=== PATIENT | male | born 1970 | race Caucasian/White ===

== ENCOUNTER 2020-10-23 11:47 | Outpatient (CLI) | payer OTHER, SELFPAY ==
[2020-10-23 12:09] LABS: SARS-CoV-2 Ag Negative (Negative)
== END 2020-10-23 11:48 | disposition home or self-care (01) ==
LOC: CHSLAB 11:52
PROVIDERS: PCP Internal Medicine; Visit Provider Internal Medicine
DX: Z20.828 Contact with and (suspected) exposure to other viral communicable diseases (principal)
CPT/HCPCS: 87426

== ENCOUNTER 2020-11-19 07:55 | Outpatient (CLI) | payer OTHER, SELFPAY ==
--- NOTE | ~2020-11-19 | US_ITS ---
US right upper quadrant INDICATION: Abnormal liver enzymes PROCEDURE: Realtime right upper abdominal ultrasound. COMPARISON: No prior studies for comparison. FINDINGS: The pancreas is normal without focal mass or pancreatic ductal dilation. Liver echotexture is normal without focal mass or intrahepatic biliary dilatation. There is normal directional flow i n the portal vein. The gallbladder is normal without stones, gallbladder wall thickening or pericholecystic fluid. Comm on bile duct measures 4 mm. No sonographic Ace's sign. IMPRESSION: 1: Normal limited abdominal ultrasound. Reviewed, dictated and finalized at location A. [facility]
[2020-11-19 09:09] LABS: Cholesterol 309 mg/dL (0-200); HDL Direct 24 mg/dL (40-60); Prostate Specific Antigen 1.4 ng/mL (< OR = 4.0)
[2020-11-19 09:13] LABS: LDL Cholesterol Calculated 164 mg/dL (<130); Triglycerides 605 mg/dL (0-150)
[2020-11-19 09:14] LABS: LDL Cholesterol Direct 177 mg/dL (0-130)
[2020-11-19 10:01] LABS: Creatinine Urine 141.67 mg/dL (40-278); MALB Creatinine Ratio 9.1 mg/g (0-30); Microalbumin Urine Random < 13.0 mg/L
[2020-11-23 11:26] LABS: Alanine Aminotransferase 88 U/L (16-63); Albumin Level 4.4 g/dL (3.4-5.0); Alkaline Phosphatase 108 U/L (46-116); Aspartate Amino Transferase 37 U/L (15-37); Bilirubin Direct 0.1 mg/dL (0-0.2); Bilirubin,Total 0.5 mg/dL (0.00-1.00); Glucose 271 mg/dL (70-99); Total Protein 7.8 g/dL (6.4-8.2)
== END 2020-11-19 07:56 | disposition home or self-care (01) ==
LOC: CHSIMG 07:57
PROVIDERS: PCP Internal Medicine; Visit Provider Internal Medicine
DX: R73.9 Hyperglycemia, unspecified (principal); R94.5 Abnormal results of liver function studies; Z12.5 Encounter for screening for malignant neoplasm of prostate; E78.1 Pure hyperglyceridemia
CPT/HCPCS: 36415; 76705; 80061; 80076; 82043; 82947; 83721; 84153; G0103

== ENCOUNTER 2024-05-24 09:42 | Emergency (ER) | payer OTHER, SELFPAY ==
--- NOTE | ~2024-05-24 | CT_ITS ---
CT abdomen pelvis w con Ordering provider: Mumtaz Watkins MD History: 54 years Male with . RLQ pain since 6 am . Comparison: January 15, 2007 Technique: CT abdomen and pelvis with IV and without oral contrast. Automated exposure control and it erative reconstruction technique were employed. The dose-length product was 571.24 mGy-cm. 100 mL of Omnipaque 350 was given IV. Findings: VISUALIZED LOWER CHEST: Normal. UPPER ABDOMINAL ORGANS: Liver: Fat infiltration. Gallbladder: Normal. Spleen: Normal. Stomach/duodenum: Normal. Pancreas: Normal. Adrenals: Right adrenal adenoma measuring 1.6 x 1.7 cm. Kidneys: Stone in the left kidney mid pole measuring 4 mm. small stones in the left kidney lower pole of the largest measures measuring 5 mm. Stone in the right kidney lower pole. right hydronephrotic changes seen with a stone in the right lower ureter measuring 5 mm. PELVIC ORGANS: The bladder is normal. BOWEL AND MESENTERY: Colon: Mild sigmoid diverticulosis without diverticulitis. Normal appendix. Small Bowel: Normal. No obstruction. Peritoneum/mesentery: No free air or free fluid. No mesenteric lymphadenopathy. RETROPERITONEUM: Mild atheromatous disease of the abdominal aorta. No retroperitoneal lymphadenopat hy. MUSCULOSKELETAL: Superficial soft tissues: The superficial soft tissues are normal. Bones: Age appropriate degenerative changes of the spine. IMPRESSION: 1. Stone in the right lower ureter with right hydronephrotic changes. 2. Bilateral kidney stones. 3. Mild fat infiltration of the liver. Reviewed, dictated and finalized at location A.
[2024-05-24 09:42] VITALS: BP 165/104; PULSE 80; RESP 18; TEMP 36.2; O2SAT 99
--- NOTE | 2024-05-24 10:13 | ED.ABDPAIN ---
HPI - Abdominal Pain General Chief Complaint: Abdominal Pain Stated Complaint: rlq pain Time Seen by Provider: 05/24/24 09:54 Source: patient and family Mode of arrival: ambulatory Limitations: no limitations History of Present Illness HPI narrative: 54-year-old white male with a history diabetes, hypertension, presents with right lower quadrant discomfort being evening at about 6:00 a.m.. He reports it is constant, has build up in intensity, does not have a colicky component. Denies any recent fever, chills, sinus drainage, sore throat, coughing, chest pain, shortness of breath, palpitations, near-syncope or syncope. Denies nausea or vomiting, diarrhea or constipation, dysuria urgency or frequency. The discomfort was worse as he was going down the steps. It also increases when he moves around. Related Data Home Medications Medication Instructions Recorded Confirmed alprazolam 2 mg tablet 2 mg PO DAILY 09/11/20 05/24/24 metformin 500 mg tablet 500 mg PO BID 05/24/24 05/24/24 rosuvastatin 5 mg tablet 5 mg PO DAILY 05/24/24 05/24/24 Allergies Allergy/AdvReac Type Severity Reaction Status Date / Time buspirone AdvReac Unknown Nausea Verified 05/24/24 09:42 mirtazapine AdvReac Unknown Depression Verified 05/24/24 09:42 morphine AdvReac Unknown unknown Verified 05/24/24 09:42 trazodone AdvReac Unknown Unknown Verified 05/24/24 09:42 Review of Systems Review of Systems: All systems reviewed & are unremarkable except as noted in HPI and below PMFSH Past Medical History Medical History Chronic insomnia History of dysthymia Surgical History Surgical History (System 02/14/21 @ 10:53 by Natalie Segovia) H/O hernia repair H/O shoulder surgery Family History Family History Father Hypertension Osteoarthritis Anxiety Social History Social History (System 02/14/21 @ 10:53 by Natalie Segovia) Smoking status: Never smoker Exam Narrative: pleasant, well-appearing child, appropriately interactive, no acute distress Const: General: cooperative, healthy appearing, comfortable, no acute distress, well developed, alert, awake and Physically active Orientation/consciousness: patient oriented x3 Other: Pleasant, well-oriented, articulate, no acute distress, mildly obese HENMT: Head: normal to inspection, normocephalic and atraumatic Ears: hearing grossly normal bilaterally and external ears normal Face/Nose/Sinus: Normal external nose present, Normal nares present, Normal nasal mucous membranes and turbinates present and normal facial exam Face and sinus: normal facial exam Mouth: Yes Normal oral and palatal mucosa present, Yes lip normal, Yes tongue normal, Yes oropharynx normal and Yes moist mucous membranes Teeth and gingiva: dentition normal Throat: posterior oropharynx normal and tonsils normal ( erythematous) Eyes: General: appearance normal, both eyes and all related structures Alignment and Position: alignment normal and position normal Periorbital: periorbital findings normal Eyelids: eyelids normal Conjunctivae: conjunctivae normal Sclera: sclerae normal Cornea: corneas normal Pupils: Equal, round and reactive pupils present EOM: EOMs intact bilaterally Neck: Neck: normal visual inspection, full ROM and no lymphadenopathy Chest: Chest palpation & inspection: normal inspection of the chest Resp: Effort & Inspection: normal respiratory effort, able to speak in complete sentences, no audible wheezes, no respiratory distress and no use of accessory muscles Auscultation: clear to auscultation bilaterally Cardio: Jugular venous distension: no JVD Rate: regular rate Rhythm: regular rhythm GI: Inspection: normal to inspection GI Palp: Yes Soft to palpation, Yes Tenderness to palpation present (GI), No Guarding due to palpation present (GI), No Rigid due to palpation,
[2024-05-24] MEDS: KETOROLAC 30 MG/ML VIAL (*BKC) IV PUSH (10:24)
[2024-05-24] MEDS: LACTATED RINGERS 1,000 ML 999 ML IV CONT (10:25)
[2024-05-24 10:27] VITALS: BP 184/97; PULSE 77; RESP 18; O2SAT 99
[2024-05-24 10:27] LABS: Basophils Absolute Auto 0.06 K/mm3 (0.00-0.10); Basophils Percent Auto 0.8 % (0.0-1.0); Eosinophils Absolute Auto 0.15 K/mm3 (0.02-0.50); Eosinophils Percent Auto 1.9 % (1.0-6.0); Hematocrit 44.9 % (40.0-54.0); Hemoglobin 15.8 g/dL (14.0-18.0); Immature Granulocyte Absolute 0.07 K/mm3 (0.00-0.00); Immature Granulocyte Percent A 0.9 % (0.0-0.0); Lymphocytes Percent Auto 20.4 % (18.0-42.0); Mean Corpuscular HGB Conc 35.2 g/dL (32-36); Mean Corpuscular Hemoglobin 30.7 pg (27.0-31.0); Mean Corpuscular Volume 87.2 fL (78.0-102.0); Mean Platelet Volume 8.9 fl (8.7-11.0); Monocytes Absolute Auto 0.46 K/mm3 (0.10-0.90); Monocytes Percent Auto 5.9 % (2.0-11.0); Neutrophils Absolute Auto 5.51 K/mm3 (1.70-7.20); Neutrophils Percent Auto 70.1 % (50.0-70.0); Platelet Count Result 177 K/mm3 (150-420); Red Blood Count 5.15 M/mm3 (4.70-6.10); Red Cell Distribution Width 11.9 % (11.6-14.4); White Blood Count 7.9 K/mm3 (4.8-10.8)
[2024-05-24 10:45] LABS: Alanine Aminotransferase 37 U/L (16-63); Albumin Level 3.8 g/dL (3.4-5.0); Alkaline Phosphatase 61 U/L (46-116); Anion Gap 8 mmol/L (4-12); Aspartate Amino Transferase 37 U/L (15-37); Blood Urea Nitrogen 11 mg/dL (7-18); Calcium 8.7 mg/dL (8.5-10.1); Carbon Dioxide 29 mmol/L (21-32); Chloride 102 mmol/L (98-108); Estimated CRCL calculation 65 ml/min; Estimated Glomerular Filt Rate > 60; Glucose 167 mg/dL (70-99); Lipase 27 U/L (16-77); Osmolality Calculated 291 mOsm/kg (285-295); Potassium 4.2 mmol/L (3.5-5.1); Sodium 139 mmol/L (136-145)
[2024-05-24 10:48] LABS: Appearance Urine Clear (Clear); Bilirubin Urine Negative (Negative); Blood Urine 3+ (Negative); Color Urine Yellow (Yellow); Glucose Urine UA 3+ (Negative); Ketones Urine Negative (Negative); Leukocyte Esterase Ur Negative LEU/UL (Negative); Nitrate Urine Negative (Negative); Protein Urine Negative (Negative); Specific Grav Ur 1.015 (1.010-1.020); Urobilinogen Urine 0.2 mg/dL (0.2-1.0)
[2024-05-24 10:55] LABS: Add Urine Microscopic? YES; RBC Urine >75 /hpf (0-2); Squamous Epithelial Cell Urine Noted /hpf (Few); WBC Urine None seen /hpf (0-3)
[2024-05-24 10:56] LABS: Bacteria Urine None seen /hpf
--- NOTE | 2024-05-24 11:08 | PC.NURSE ---
pt reports he is pain free at this time, denies any needs or complaints, is on his way to ct at this time. will continue to monitor.
--- NOTE | 2024-05-24 11:34 | PC.NURSE ---
pt has returned from ct and is awaiting results. nad noted. will continue to monitor.
[2024-05-24 12:45] VITALS: BP 143/99; PULSE 92; RESP 16; O2SAT 98
--- NOTE | 2024-05-24 12:49 | PC.NURSE ---
URINAL, STRAINER, AND SPECIMEN CUP PROVIDED TO PT AT [place].
== END 2024-05-24 12:45 | disposition home or self-care (01) ==
PROVIDERS: Emergency Provider Emergency Medicine; PCP Internal Medicine
DX: N13.2 Hydronephrosis with renal and ureteral calculous obstruction (principal); E11.9 Type 2 diabetes mellitus without complications; I10 Essential (primary) hypertension; Z79.84 Long term (current) use of oral hypoglycemic drugs; Z79.899 Other long term (current) drug therapy
CPT/HCPCS: 36415; 74177; 80053; 81001; 83690; 85025; 96361; 96374; 99284; J1885; J7120; Q9967

== ENCOUNTER 2024-06-20 17:16 | Emergency (ER) | payer OTHER, SELFPAY ==
[2024-06-20 17:18] VITALS: BP 143/97; PULSE 94; RESP 20; TEMP 36.3; O2SAT 98
--- NOTE | 2024-06-20 17:25 | ED.WOUNDLAC ---
HPI - Wound/Laceration General Chief Complaint: Wound/Laceration Stated Complaint: LACERATION Time Seen by Provider: 06/20/24 17:25 Source: patient Mode of arrival: ambulatory Limitations: no limitations History of Present Illness HPI narrative: ACCIDENTAL RAZOR BLADE INJURY TO LATERAL SIDE OF THE RIGHT LOWER LEG PRIOR TO ARRIVAL TO THE EMERGENCY ROOM. PATIENT DENIES OTHER INJURIES. UNKNOWN LAST TIME OF TETANUS SHOT. Related Data Home Medications Medication Instructions Recorded Confirmed alprazolam 2 mg tablet 2 mg PO DAILY 09/11/20 06/20/24 metformin 500 mg tablet 500 mg PO BID 05/24/24 06/20/24 rosuvastatin 5 mg tablet 5 mg PO DAILY 05/24/24 06/20/24 bupropion HCl 150 mg tablet,12 hr 150 mg PO BID 06/20/24 06/20/24 sustained-release citalopram 40 mg tablet 40 mg PO BID 06/20/24 06/20/24 hydroxyzine HCl 10 mg tablet 10 mg PO TID 06/20/24 06/20/24 Allergies Allergy/AdvReac Type Severity Reaction Status Date / Time buspirone AdvReac Unknown Nausea Verified 06/20/24 17:23 mirtazapine AdvReac Unknown Depression Verified 06/20/24 17:23 morphine AdvReac Unknown unknown Verified 06/20/24 17:23 trazodone AdvReac Unknown Unknown Verified 06/20/24 17:23 Review of Systems Review of Systems: All systems reviewed & are unremarkable except as noted in HPI and below PMFSH Past Medical History Medical History Chronic insomnia History of dysthymia Surgical History Surgical History H/O hernia repair H/O shoulder surgery Family History Family History Father Hypertension Osteoarthritis Anxiety Social History Social History Smoking status: Never smoker Exam Narrative: GENERAL APPEARANCE: WELL-DEVELOPED, WELL-NOURISHED SKIN: NORMAL COLOR HEAD: NORMOCEPHALIC, NONTRAUMATIC VASCULAR: NORMAL PERIPHERAL PULSES, NORMAL CAPILLARY REFILL. MUSCULOSKELETAL: 3 CM LACERATION AT THE LATERAL SIDE OF THE RIGHT LOWER LEG DISTAL TO THE KNEE, SUBCUTANEOUS. 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, NO GROSS MOTOR DEFICIT Procedures Laceration Laceration 1: Date: 06/20/24 Time: 18:05 Site: lower extremity Side (If applicable): right Size (cm): 3 Description: linear and clean Depth: simple, single layer Local Anesthetic: lidocaine 1% and with epi Amount of anesthesia used (mL): 5 Pre-repair: wound explored and irrigated ====== Skin Level ====== Skin layer closed with: nylon Size (cm): 5-0 Number of sutures: 7 Technique: simple, interrupted ====== Subcutaneous Layer ====== ====== Muscle Layer ====== ====== Tendon Layer ====== Discharge Plan Discharge Clinical Impression: Laceration of leg Patient Disposition: Home, Self-Care Condition: Stable Instructions: Antibiotic Form, Laceration (ED) Additional Instructions: RETURN IF SYMPTOMS ARE WORSENING , CALL YOUR FAMILY PHYSICIAN FOR APPOINTMENT, TAKE TYLENOL NEEDED FOR ACHES AND PAIN, CONTINUE HOME MEDICATIONS. REMOVE SUTURES IN 8 DAYS Prescriptions: New cephalexin 500 mg capsule 500 mg PO Q6H 7 Days Qty: 28 0RF No Action metformin 500 mg tablet 500 mg PO BID rosuvastatin 5 mg tablet 5 mg PO DAILY naproxen [Naprosyn] 500 mg tablet 500 mg PO BID PRN (Reason: pain) Qty: 30 0RF tamsulosin [Flomax] 0.4 mg capsule 0.4 mg PO DAILY Qty: 10 0RF ondansetron 4 mg tablet,disintegrating 4 mg PO Q6
[2024-06-20] MEDS: LIDOCAINE HCL 1% LOCAL INJ 10 ML VIAL 5 ML INFILTRATE (17:47)
[2024-06-20] MEDS: TETANUS,DIPHTHERIA,AC PERTUSSIS ADULT 0.5 ML (ADACEL) IM (17:47)
[2024-06-20 18:24] VITALS: BP 138/88; PULSE 88; RESP 18; O2SAT 98
--- NOTE | 2024-06-20 18:31 | PC.NURSE ---
WOUND REPAIRED AND CLEANED PER ERP. PT RECEIVED 7 SUTURES, TOLERATED WELL. WOUND DRESSED PER RN, PT TOLERATED WELL.
== END 2024-06-20 18:24 | disposition home or self-care (01) ==
PROVIDERS: Emergency Provider Emergency Medicine; PCP Internal Medicine
DX: S81.811A Laceration without foreign body, right lower leg, initial encounter (principal); Z79.899 Other long term (current) drug therapy; Z79.84 Long term (current) use of oral hypoglycemic drugs; Z23 Encounter for immunization; W27.8XXA Contact with other nonpowered hand tool, initial encounter
CPT/HCPCS: 12002; 90471; 90715; 99283

== ENCOUNTER 2025-09-11 20:59 | Emergency (ER) | payer OTHER, SELFPAY ==
[2025-09-11] VITALS (11 sets, daily range): BP systolic 137–158; BP diastolic 88–98; PULSE 85–94; RESP 11–20; TEMP 36.6; O2SAT 96–99
--- NOTE | ~2025-09-11 | CT_ITS ---
CT HEAD NON-CONTRAST Clinical History: vision changes Comparison: 10/20/2016 Technique: Unenhanced axial images skull base to vertex Coronal, sagittal reformats CT images acquired with automatic exposure control for dose reduction DLP: 681 mGy-cm Findings: Sulci, ventricles: Unremarkable. No intracerebral hemorrhage. No evidence acute territorial infarct. No mass effect, midline shift. Bony calvarium intact. Visualized paranasal sinuses: Clear. Mastoid air cells: Clear. IMPRESSION: 1. No acute intracranial findings. Reviewed, dictated and finalized at location R.
--- NOTE | 2025-09-11 21:07 | ED.EYEPROB ---
HPI - Eye Problem General Chief complaint: Neuro Symptoms/Deficit Stated complaint: eye prob Time Seen by Provider: 09/11/25 21:06 Source: patient Mode of arrival: ambulatory Limitations: no limitations History of Present Illness HPI Narrative: Patient is a 55-year-old male otherwise healthy having right greater than left eye floaters that have increased over the past 2 days. He has associated flashes of light that are also occurring more so in the right eye. chief complaint: vision change (Increased eye floaters and flashes of light more so in the right eye) Onset (ago): day(s) (2) Onset description: gradual Duration: intermittent Location: right eye Eye Symptoms: other (Right eye a increased floaters and flashes of light over the past 2 days) Place: home Mechanism: none Severity: mild Severity scale (1-10): 3 If Pain, Quality: other (No pain) Context: other (Patient having increased floaters and flashes of light to the right eye and 2 different occurrences 1 last night and 1 tonight that lasts for a period of time and then resolves and comes back) Associated symptoms: none Treatments Prior to Arrival: other (None) Related Data Home Medications ?Medication ?Instructions ?Recorded ?Confirmed ?Last Taken ?Type alprazolam 2 mg tablet 2 mg PO DAILY 09/11/20 09/11/25 Unknown History metformin 500 mg tablet 500 mg PO BID 05/24/24 09/11/25 Unknown History rosuvastatin 5 mg tablet 5 mg PO DAILY 05/24/24 09/11/25 Unknown History empagliflozin 25 mg tablet 25 mg PO DAILY 09/11/25 09/11/25 09/11/25 History (Jardiance) Allergies Allergy/AdvReac Type Severity Reaction Status Date / Time buspirone AdvReac Unknown Nausea Verified 09/11/25 21:45 mirtazapine AdvReac Unknown Depression Verified 09/11/25 21:45 morphine AdvReac Unknown unknown Verified 09/11/25 21:45 trazodone AdvReac Unknown Unknown Verified 09/11/25 21:45 Review of Systems Review of Systems: All systems reviewed & are unremarkable except as noted in HPI and below Constitutional: Constitutional: Reports no additional constitutional complaints Eyes: Eyes: Reports no additional eye complaints ENT: Reports system reviewed and no additional complaints, except as documented Cardiovascular: Cardiovascular: Reports no additional cardiovascular complaints Respiratory: Respiratory: Reports no additional respiratory complaints Gastrointestinal: Gastrointestinal: Reports no additional gastrointestinal complaints Genitourinary: Genitourinary: Reports no additional male genitourinary complaints Musculoskeletal: Musculoskeletal: Reports no additional musculoskeletal complaints Integumentary/Breasts: Skin/Breast: Reports system reviewed and no additional complaints, except as docu Neurologic: Reports system reviewed and no additional complaints, except as documented Psychiatric: Psychiatric: Reports no additional psychiatric complaints Endocrine: Endocrine: Reports no additional endocrine complaints Hematologic/Lymphatic: Hematologic/Lymphatic: Reports no additional hematologic/lymphatic complaints Allergic/Immunologic: Allergic/Immunologic: Reports no additional allergic/immunologic complaints [facility] Past Medical History Medical History History of dysthymia Chronic insomnia Surgical History Surgical History H/O shoulder surgery H/O hernia repair Family History Family History Father Hypertension Osteoarthritis Anxiety Social History Social History Smoking status: Never smoker Exam Const: General: healthy appearing Nutritional Appearance: well nourished Orientation/consciousness: patient oriented x3 HENMT: Head: normal to inspection Ears: external ears normal Face/Nose/Sinus: Normal external nose present Eyes: Conjunctivae: conjunctivae normal Pupils: Equal, round and reactive pupils present EOM: EOMs intact bilaterally Neck: Neck: normal visual inspection Chest: Chest palpation & inspection: normal inspection of the chest Resp: Effort & Inspection: normal respiratory effort and not labored Auscultation: clear to auscultation bilaterally and no crackles Cardio: Rate: regular rate Rhythm: regular rhythm Heart sounds: no murmurs GI: Inspection: non-distended GI Palp: Yes Soft to palpation and No Tenderness to palpation present (GI) Auscultation: normal bowel sounds : General: Yes bladder normal to palpation Back/Spine/Pelvis: Back: no CVA tenderness Skin: General skin exam: normal color Rashes: no rashes Wounds: no wounds Neuro: General: patient oriented x3, moves all extremities, no meningeal signs, no focal motor deficits and CN's II-XI intact bilaterally Other: Fast exam negative, NIH is 0, GCS is 15 Extrem: General: normal to inspection, no clubbing, cyanosis or edema and no pedal edema Psych: Mental Status: mental status grossly normal Affect: normal affect Attitude: cooperative Course Vital Signs Vital signs: Vital Signs Temperature 36.6 C 09/11/25 21:02 Pulse Rate 86 09/11/25 21:02 Respiratory Rate 20 09/11/25 21:02 Blood Pressure 151/93 H 09/11/25 21:02 Pulse Oximetry 99 09/11/25 21:02 Oxygen Delivery Room Air 09/11/25 21:02 Temperature 36.4 C 09/12/25 00:01 Pulse Rate 84 09/12/25 00:01 Respiratory Rate 17 09/12/25 00:01 Blood Pressure 137/93 H 09/12/25 00:01 Pulse Oximetry 96 09/12/25 00:01 Oxygen Delivery Room Air 09/12/25 00:01 MDM - Eye Problem MDM Narrative Medical decision making narrative: Patient is a 55-year-old male with increased floaters and flashes of light in his right eye over the past 2 days. We will do neurological workup at this time. We will touch base with Ophthalmology. Lab Data Attestation: I reviewed the patient's lab results. 09/11/25 21:41 09/11/25 21:41 Labs: Lab Results 09/11/25 09/11/25 Range/Units 21:05 21:41 WBC 8.4 (4.8-10.8) K/mm3 RBC 5.02 (4.70-6.10) M/mm3 Hgb 14.9 (14.0-18.0) g/dL Hct 43.8 (40.0-54.0) % MCV 87.3 (78.0-102.0) fL MCH 29.7 (27.0-31.0) pg MCHC 34.0 (32-36) g/dL RDW 11.9 (11.6-14.4) % Plt Count 222 (150-420) K/mm3 MPV 8.8 (8.7-11.0) fl Immature Gran % (Auto) 0.4 H (0.0-0.0) % Neut % (Auto) 69.0 (50.0-70.0) % Lymph % (Auto) 18.3 (18.0-42.0) % Eagle % (Auto) 6.2 (2.0-11.0) % Eos % (Auto) 5.4 (1.0-6.0) % Baso % (Auto) 0.7 (0.0-1.0) % Lymph # (Auto) 1.53 (1.10-4.50) K/mm3 Eagle # (Auto) 0.52 (0.10-0.90) K/mm3 Eos # (Auto) 0.45 (0.02-0.50) K/mm3 Baso # (Auto) 0.06 (0.00-0.10) K/mm3 Abs Immat Gran (auto) 0.03 H (0.00-0.00) K/mm3 Absolute Neuts (auto) 5.79 (1.70-7.20) K/mm3 Absolute Nucleated RBC 0.00 (0.00-0.00) K/mm3 Nucleated RBC % 0.0 (0-0.0) % PT 10.4 (9.50-12.1) Seconds INR 0.9 APTT 29.7 (23.9-30.70) Sec Sodium 144 (137-145) mmol/L Potassium 4.5 (3.4-5.0) mmol/L Chloride 102 (98-107) mmol/L Carbon Dioxide 30 (22-30) mmol/L Anion Gap 12 (4-12) mmol/L BUN 17 (9-20) mg/dL Creatinine 1.36 H (0.7-1.3) mg/dL Estim Creat Clear Calc 54 ml/min Estimated GFR 54 L (59 - ) Glucose 135 H (65-110) mg/dL POC Capillary Glucose 130 H (65-105) mg/dl Calculated Osmolality 301 H (285-295) mOsm/kg Calcium 9.8 (8.4-10.2) mg/dL Total Bilirubin 0.9 (0.2-1.3) mg/dL AST 36 (17-59) U/L ALT 33 (6-50) U/L Alkaline Phosphatase 76 (38-126) U/L Troponin I < 0.012 (0.000-0.034) ng/mL Total Protein 8.6 H (6.3-8.2) g/dL Albumin 4.8 (3.5-5.1) g/dL Imaging Data Attestation: I personally reviewed and interpreted this imaging study as follows: Radiologist's impression: CT scan of the head was negative for acute process ECG Data EKG #1: Attestation: I personally reviewed and interpreted this ECG as follows: ECG completion date: 09/11/25 ECG completion time: 21:42 EKG Interpretation: normal rate, sinus rhythm, no ectopy, non-specific ST changes, normal QRS, normal QT and left axis Discharge Plan Discharge Clinical Impression: Vitreous floaters of both eyes, Vitreous flashes of both eyes Patient Disposition: Home Condition: Stable Instructions: Eye (Visual) Floaters (ED) Additional Instructions: Please follow-up with field supervisor tomorrow at 9:30 a.m.. The address is [address] [place] [address]. Telephone #[phone]. Dr. Blevins is the field supervisor. If you can not make this appointment, please call them and reschedule. I suggest you get seen this week. Come back to the ER for worse symptoms. Patient Language: Montenegrin Prescriptions: No Action metformin 500 mg tablet 500 mg PO BID rosuvastatin 5 mg tablet 5 mg PO DAILY Jardiance 25 mg tablet 25 mg PO DAILY alprazolam 2 mg tablet 2 mg PO DAILY Follow-up/Referrals: Amol Ewing MD [Primary Care Provider, Internal Medicine] Time of Disposition: 00:36
--- NOTE | 2025-09-11 21:31 | ECG_ITS ---
Test Date: 2025-09-11 21:51:21 Measurements Intervals [place] Rate: 87 P: 54 VA: 174 QRS: -24 QRSD: 106 T: 33 QT: 366 QTc: 441 Interpretive Statements SINUS RHYTHM NORMAL ECG No previous ECG available for comparison Electronically Signed On 09-12-2025 06:16:11 CDT by Dimitri Noel D.O.
--- OUTSIDE RECORDS SUMMARY | 2025-09-11 21:35 | XMS_ITS | Continuity of Care Document ---
Author Organization [employer] Address [address] [facility] [address] [place] [address] Insurance Providers Payer Plan Claims Address Claims Phone Policy Number Group Number Relation Employer Guarantor Name Guarantor Guarantor Address Guarantor Phone [facility] Veronica nguyen [facility] [employer] [address], [place] [address] tel:[phone] Self Ashu Arndt [address] [place] [address] [facility] Veronica Hyde [employer] N[employer] [address], [place] [address] tel:[phone] Self Ashu Arndt [address] [place] [address] [facility] [employer] P[employer] [address], [place] [address] tel:[phone] Self Ashu Arndt [address] [place] [address] Problems Condition ICD9 code ICD10 code SNOMED code Start Date End Date S tatus Encounter for screening for other metabolic disorders Z13.228 Results Test Result Date/Time Value / Unit Interp. Refere nce Range COPY(IES) SENT TO:[$CPTO] Collected: 01/29/2023 04:12 PM Specimen Received: 01/29/2023 04:14 PM Source: [facility]: YES COPY(IES) SENT TO: [$CPTO] 01/30/2023 09:00 PM CONG CORTES MD [address] [place] [address] [place] [address] [place] [address] LIPID PANEL, STANDARD[[id number]] Collected: 01/29/2023 04:12 PM Specimen Received: 01/29/2023 04:14 PM Source: [facility]YESFASTING: YES CHOLESTEROL, TOTAL [[id number]] 01/30/2023 09:00 PM 190 mg/dL N 200 mg/dL HDL CHOLESTEROL [[id number]] 01/30/2023 09:00 PM 36 mg/dL L > OR = 40 mg/dL TRIGLYCERIDES [[id number]] 01/30/2023 09:0 0 PM 517 mg/dL H 150 mg/dL If a non-fasting specimen wa s collected, considerrepeat triglyceride testing on a fasting specimenif clinically indicated. Mahajan et al. J. of Clin. Lipidol. 2015;9:129-169. There is increased risk of pancreatitis when the triglyceride concentration is very high (> or = 500 mg/dL, especially if > or = 1000 mg/dL). Mahajan et al. J. of Clin. Lipidol. 2015;9:129-169. LDL-CHOLESTEROL [[id number]] 01/30/2023 09:00 PM LDL cholesterol not calculat ed. Triglyceride levelsgreater than 400 mg/dL invalidate calculated LDL results. Reference range: or = 2 CHD risk factors. LDL-C is now calculated using the Silvino-Sudheer calculation, which is a validated novel method providing better accuracy than the Friedewald equation in the estimation of LDL- C. Silvino ROE et al. NIGHAT. 2013;310(19): 1391-4276 (http://education.GeoGRAFI.com/faq/IQK030) CHOL/HDLC RATIO [[id number]] 01/30/2023 09:00 PM 5.3 (calc) H 5.0 (calc) NON HDL CHOLESTEROL [[id number]] 01/30/2023 09:00 PM 154 mg/dL (calc) H 130 mg/dL (calc) For patients with diabetes p kulwinder 1 major ASCVD risk factor, treating to a non-HDL-C goal of 100 mg/dL (LDL-C of <70 mg/dL) is considered a therapeutic option. ALBUMIN, RANDOM URINE W/CREA ROXANNACHARO[[id number]] Collected: 01/29/2023 04:12 PM Specimen Received: 01/29/2023 04:14 PM Source: [facility]:YESFASTING: YES CREATININE, RANDOM URINE [[id number]] 01/30/2023 09:00 PM 82 mg/dL N 20-320 mg/dL ALBUMIN, URINE [[id number]] 01/30/2023 09: 00 PM 0.9 mg/dL N See Note: mg/dL Reference Range:Reference Ra ngeNot established ALBUMIN/CREATININE RATIO, RANDOM URINE [[id number]] 01/30/2023 09:00 PM 11 mcg/mg creat N 30 mcg/mg creat The ADA defines abnormalitie s in albuminexcretion as follows: Albuminuria Category Result (mcg/mg creatinine) Normal to Mildly increased OR = 300 The ADA recommends that at least two of threespecimens collected within a 3-6 month period beabnormal before considering a patient to bewithin a diagnostic category. COMPREHENSIVE METABOLIC PANE L[[id number]] Collected: 01/29/2023 04:12 PM Specimen Received: 01/29/2023 04:14 PM Source: [facility]:YESFASTING: YES GLUCOSE [[id number]] 01/30/2023 09:00 PM 151 mg/dL H 65-99 mg/dL Fasting reference interval F or someone without known diabetes, a glucosevalue >125 mg/dL indicates that they may havediabetes and this should be confirmed with afollow-up test. UREA NITROGEN (BUN) [[id number]] 01/30/2023 09:00 PM 17 mg/dL N 7-25 mg/dL CREATININE [[id number]] 01/30/2023 09:00 PM 0.92 mg/dL N 0.70-1.30 mg/dL EGFR [[id number]] 01/30/2023 09:00 PM 99 mL/min/1.73m2 N > OR = 60 mL/min/1.73m2 The eGFR is based on the CKD -EPI 202 equation. To calculate the new eGFR from a previous Creatinine or Cystatin Cresult, go to https://www.kidney.org/professionals/kdoqi/gfr%5Fcalculator BUN/CREATININE RATIO [[id number]] 01/30/2023 09:00 PM NOT APPLICABLE (calc) 6-22 (calc) SODIUM [[id number]] 01/30/2023 09:00 PM 140 mmol/L N 135-146 mmol/L POTASSIUM [[id number]] 01/30/2023 09:00 PM 4.1 mmol/L N 3.5-5.3 mmol/L CHLORIDE [[id number]] 01/30/2023 09:00 PM 104 mmol/L N 98-110 mmol/L CARBON DIOXIDE [[id number]] 01/30/2023 09: 00 PM 24 mmol/L N 20-32 mmol/L CALCIUM [[id number]] 01/30/2023 09:00 PM 9.6 mg/dL N 8.6-10.3 mg/dL PROTEIN, TOTAL [[id number]] 01/30/2023 09: 00 PM 7.1 g/dL N 6.1-8.1 g/dL ALBUMIN [[id number]] 01/30/2023 09:00 PM 4.8 g/dL N 3.6-5.1 g/dL GLOBULIN [[id number]] 01/30/2023 09:00 PM 2.3 g/dL (calc) N 1.9-3.7 g/dL (calc) ALBUMIN/GLOBULIN RATIO [[id number]] 01/30/2023 09:00 PM 2.1 (calc) N 1.0-2.5 (calc) BILIRUBIN, TOTAL [[id number]] 01/30/2023 09:00 PM 1.0 mg/dL N 0.2-1.2 mg/dL ALKALINE PHOSPHATASE [[id number]] 01/30/2023 09:00 PM 42 U/L N 35-144 U/L AST [[id number]] 01/30/2023 09:00 PM 14 U/L N 10-35 U/L ALT [[id number]] 01/30/2023 09:00 PM 18 U/L N 9-46 U/L HEMOGLOBIN A1c[[id number]] Collected: 01/29/2023 04:12 PM Specimen Received: 01/29/2023 04:14 PM Source: [facility]:YESFASTING: YES HEMOGLOBIN A1c [[id number]] 01/30/2023 09: 00 PM 6.4 % of total Hgb H 5.7 % of total Hgb For someone without known di abetes, a hemoglobin A1c value between 5.7% and 6.4% is consistent withprediabetes and should be confirmed with a follow-up test. For someone with known diabetes, a value 7%indicates that their diabetes is well controlled. [id number] should be individualized based on duration ofdiabetes, age, comorbid conditions, and otherconsiderations. This assay result is consistent with an increased riskof diabetes. Currently, no consensus exists regarding use ofhemoglobin A1c for diagnosis of diabetes for children. Clinical PDF Report [id number][ClinicalPDFReport1] Collected: 01/29/2023 04:12 PM Specimen Received: 01/29/2023 04:14 PM Source: [facility]ST[facility]:YESFASTING: YES Clinical PDF Report [id number] [ClinicalPDFReport1] STL Allergies, adverse reactions, alerts No known allergies and adverse reactions Medications No administered medications reported Vital Signs No vital signs reported Social History No smoking Hx information available
--- OUTSIDE RECORDS SUMMARY | 2025-09-11 21:35 | XMS_ITS | Data Portability ---
Author Organization [place] [employer], Main Office Address [address] [place] [address] Care Team Providers Care Night Stocker Name Role Phone SEAN SALEEM Primary Care Provider [phone] Assessment No assessment recorded. Plan of Treatment Reminders Order Date Submit Date Provider Last Modified By Organization Details Last Modified Time Details Appointments None recorded. Lab lipid panel, serum 2022 023 [facility] Add On Lab Orders, [address] [place], [address], 3 16:27:17 TSH + free T4, serum 2022 023 [facility] Add On Lab Orders, [address] [place], [address], 3 16:27:20 CMP, serum or plasma 2022 023 [facility] Add On Lab Orders, [address] [place], [address], 3 16:27:18 HbA1c (hemoglobin A1c), blood 2022 023 [facility] Add On Lab Orders, [address] [place], [address], 3 16:27:21 microalbumi n/creatinin e, mass ratio, urine 2022 023 [facility] Add On Lab Orders, [address] [place], [address], 16:27:19 Referral None recorded. Procedures None recorded. Surgeries None recorded. Imaging None recorded. Medication Orders Jardiance 25 mg tablet [address], [address] [place], [address], 13:25:39 metformin 500 mg tablet 2022 023 [facility] 213, [facility] [place], [address], 3 11:33:59 atorvastati n 10 mg tablet 2022 023 [facility] 213, [address] [place] [address], [address], 3 11:33:56 Vascepa 1 gram capsule 2022 023 [facility] 213, [address] [place], [address], 3 11:33:55 Vascepa 1 gram capsule 2022 023 [facility] 213, [address] [place], [address], 3 20:02:44 metformin 500 mg tablet 2022 023 [facility] 213, [facility] [place], [address], 3 17:22:24 Patient TargetsNo targets recorded. Patient InstructionsNo instructions recorded. Reason for Referral None Reported. Results Created Date Observation Date Name Description Value Unit Range Abnormal Flag Note LastModifiedBy Organization Detail LastModifiedTime 01/30/20 23 01/30/2023 T4, FREE T4, free 1.3 NG/dL 0.8-1. 8 normal Not Available [facility] [address] [place], [address], 01/30/2023 07:51:17 01/30/20 23 01/30/2023 TSH TSH 1.71 mIU/L 0.40-4 .50 normal Not Available [address] [place], [address], 01/30/2023 07:51:18 01/30/20 23 01/30/2023 LIPID PANEL , STAND DAMON cholesterol, total 190 mg/dL <200 normal Not Available [address] [address] [place], [address], 01/30/2023 13:47:56 01/30/20 23 01/30/2023 LIPID PANEL , STAND DAMON HDL cholesterol 36 mg/dL > or = 40 low Not Available [address], [address], 01/30/2023 13:47:56 01/30/2001/30/2023 LIPID PANEL , STAND DAMON triglyceride s 517 mg/dL <150 high If a non-f astin g speci men was colle cted, consi abhilash repea t trigl yceri de testi ng on a fasti ng speci men if clini alta indic ated. Sridhar sam et al. J. of Clin. Lipid ol. 2015; 9:129 -169. There is incre ased risk of pancr eatit is when the trigl yceri de francisca ntrat ion is very high (> or = 500 mg/dL , espec ially if > or = 1000 mg/dL ). Sridhar sam et al. J. of Clin. Lipid ol. 2015; 9:129 -169. Not Available [facility] [address] [place], [address], 01/30/2023 13:47:56 01/30/20 23 01/30/2023 LIPID PANEL , STAND DAMON LDL-choleste rol mg/dL _(davon c) LDL ada stero l not calcu lated . Trigl yceri de level s great er than 400 mg/dL inval idate calcu lated LDL resul ts. Refer ence range : <100 Jermain able range <100 mg/dL for prima ry preve ntion ; <70 mg/dL for patie nts with CHD or diabe tic patie nts with > or = 2 CHD risk facto rs. LDL-C is now calcu lated using the Sarah n-Hop kins calcu latlovely n, which is a valid ated novel metho d provi ding thai r accur acy than the Fried radha equat ion in the estim ation of LDL-C . Sarah hanson SS et al. NIGHAT. 2013; 310(1 9): 2061- 2068 (http ://ed ucati on.Qu estTuva Labs. com/f aq/FA Q164) Not Available [facility] [address] [address] [place], [address], 01/30/2023 13:47:56 01/30/20 23 01/30/2023 LIPID PANEL , STAND DAMON chol/HDLC ratio 5.3 (calc ) <5.0 high Not Available [facility] [address] [address] [place], [address], 01/30/2023 13:47:56 01/30/20 23 01/30/2023 LIPID PANEL , STAND DAMON non HDL cholesterol 154 mg/dL _(dvaon c) <130 high For patie nts with diabe fazal plus 1 major ASCVD risk facto r, treat ing to a non-H DL-C goal of <100 mg/dL (LDL- C of <70 mg/dL ) is fidel mcclellan optio n. Not Available [facility] [address] [address] [place], [address], 01/30/2023 13:47:56 01/30/20 23 01/30/2023 LIPID PANEL , STAND DAMON copy received from: [place] [address] Not Available [facility] [address] [address] [place], [address], 01/30/2023 13:47:56 01/30/2001/30/2023 COMPR EHENS CHAY METAB OLIC PANEL glucose 151 mg/dL 65-99 high Fasti ng refer ence inter donna For someo ne witho ut known diabe fazal, a gluco se value >125 mg/dL indic ates that they may have diabe fazal and this shoul d be confi rmed with a follo w-up test. Not Available [facility] [address] [address] [place], [address], 01/30/2023 13:47:57 01/30/20 23 01/30/2023 COMPR EHENS CHAY METAB OLIC PANEL urea nitrogen (BUN) 17 mg/dL 7-25 normal Not Available [facility] [address], [address], 01/30/2023 13:47:57 01/30/20 23 01/30/2023 COMPR EHENS CHAY METAB OLIC PANEL creatinine 0.92 mg/dL 0.70-1 .30 normal Not Available [facility] [address] [address] [place], [address], 01/30/2023 13:47:57 01/30/2001/30/2023 COMPR EHENS CHAY METAB OLIC PANEL eGFR 99 mL/mi n/1.7 3m2 > or = 60 normal The eGFR is based on the CKD-E PI 2020 equat ion. To calcu late the new eGFR from a previ ous Creat inine or Cysta tin C resul t, go to https ://gurwinder irene.miladis santoyo.o marilou/raúl rudd/ kdoqi /gfr% 5Fcal culat or Not Available [facility] [address] [address] [place], [address], 01/30/2023 13:47:57 01/30/20 23 01/30/2023 COMPR EHENS CHAY METAB OLIC PANEL BUN/creatini ne ratio NOT APPLIC ABLE (calc ) 6-22 Not Available [facility] tab ticketbroker [address] [address] [place], [address], 01/30/2023 13:47:57 01/30/20 23 01/30/2023 COMPR EHENS CHAY METAB OLIC PANEL sodium 140 mmol/ L 135-14 6 normal Not Available [address], [address], 01/30/2023 13:47:57 01/30/20 23 01/30/2023 COMPR EHENS CHAY METAB OLIC PANEL potassium 4.1 mmol/ L 3.5-5. 3 normal Not Available [address], [address], 01/30/2023 13:47:57 01/30/20 23 01/30/2023 COMPR EHENS CHAY METAB OLIC PANEL chloride 104 mmol/ L 98-110 normal Not Available [address], [address], 01/30/2023 13:47:57 01/30/20 23 01/30/2023 COMPR EHENS CHAY METAB OLIC PANEL carbon dioxide 24 mmol/ L 20-32 normal Not Available [address], [address], 01/30/2023 13:47:57 01/30/20 23 01/30/2023 COMPR EHENS CHAY METAB OLIC PANEL calcium 9.6 mg/dL 8.6-10 .3 normal Not Available [address], [address], 01/30/2023 13:47:57 01/30/20 23 01/30/2023 COMPR EHENS CHAY METAB OLIC PANEL protein, total 7.1 g/dL 6.1-8. 1 normal Not Available [address], [address], 01/30/2023 13:47:57 01/30/20 23 01/30/2023 COMPR EHENS CHAY METAB OLIC PANEL albumin 4.8 g/dL 3.6-5. 1 normal Not Available [address] [address] [place], [address], 01/30/2023 13:47:57 01/30/20 23 01/30/2023 COMPR EHENS CHAY METAB OLIC PANEL globulin 2.3 g/dL_ (calc ) 1.9-3. 7 normal Not Available [address] [address] [place], [address], 01/30/2023 13:47:57 01/30/20 23 01/30/2023 COMPR EHENS CHAY METAB OLIC PANEL albumin/glob ulin ratio 2.1 (calc ) 1.0-2. 5 normal Not Available [address] [address] [place], [address], 01/30/2023 13:47:57 01/30/20 23 01/30/2023 COMPR EHENS CHAY METAB OLIC PANEL bilirubin, total 1.0 mg/dL 0.2-1. 2 normal Not Available [address] [address] [place], [address], 01/30/2023 13:47:57 01/30/20 23 01/30/2023 COMPR EHENS CHAY METAB OLIC PANEL alkaline phosphatase 42 U/L 35-144 normal Not Available [address] [address] [place], [address], 01/30/2023 13:47:57 01/30/20 23 01/30/2023 COMPR EHENS CHAY METAB OLIC PANEL AST 14 U/L 10-35 normal Not Available [address], [address], 01/30/2023 13:47:57 01/30/20 23 01/30/2023 COMPR EHENS CHAY METAB OLIC PANEL ALT 18 U/L 9-46 normal Not Available [address] [address] [place], [address], 01/30/2023 13:47:57 01/30/20 23 01/30/2023 COMPR EHENS CHAY METAB OLIC PANEL copy received from: PIERRE RAMIREZ [place] [address] Not Available [address] [address] [place], [address], 01/30/2023 13:47:57 01/30/20 23 01/30/2023 ALBUM IN, RANDO M URINE W/CRE ATINI NE creatinine, random urine 82 mg/dL 20-320 normal Not Available [address] [address] [place], [address], 01/30/2023 15:04:41 01/30/20 23 01/30/2023 ALBUM IN, RANDO M URINE W/CRE ATINI NE albumin, urine 0.9 mg/dL see note: normal Refer ence Range : Refer ence Range Not estab lishe d Not Available [address] [address] [place], [address], 01/30/2023 15:04:41 01/30/20 23 01/30/2023 ALBUM IN, RANDO M URINE W/CRE ATINI NE albumin/crea tinine ratio, random urine 11 mcg/m g_cre at <30 normal The ADA defin es abnor malit ies in album in excre tion as follo ws: Album inuri a Categ ory Resul t (mcg/ mg creat inine ) Sherri l to Mildl y incre ased <30 Moder ately incre ased 30-29 9 Sever lynnette incre ased > OR = 300 The ADA recom mends that at least two of three speci mens colle cted withi n a 3-6 month perio d be abnor mal befor e consi kelly g a patie nt to be withi n a diagn ostic categ ory. Not Available [address] [address] [place], [address], 01/30/2023 15:04:41 01/30/2001/30/2023 ALBUM IN, RANDO M URINE W/CRE ATINI NE copy received from: PIERRE RAMIREZ [address] [place] [address] Not Available [facility] [address] [address] [place], [address], 01/30/2023 15:04:41 01/30/20 23 01/30/2023 HEMOG LOBIN A1C hemoglobin A1C 6.4 %_of_ total _HGB <5.7 high For someo ne witho ut known diabe fazal, a hemog lobin A1c value betwe en 5.7% and 6.4% is consi stent with predi abete s and shoul d be confi rmed with a follo w-up test. For someo ne with known diabe fazal, a value <7% indic ates that their diabe fazal is well contr olled . A1c targe ts shoul d be indiv idual ized based on durat ion of diabe fazal, age, comor bid condi tions , and other consi derat ions. This assay resul t is consi stent with an incre ased risk of diabe fazal. Curre ntly, no conse nsus exist s regar ding use of hemog lobin A1c for diagn osis of diabe fazal for child jarad. Not Available [facility] [address] [address] [place], [address], 01/30/2023 10:47:28 01/30/20 23 01/30/2023 HEMOG LOBIN A1C copy received from: PIERRE RAMIREZ [address] [place] [address] Not Available [facility] [address] [place], [address], 01/30/2023 10:47:28 07/02/20 23 07/03/2023 LIPID PANEL , STAND DAMON cholesterol, total 178 mg/dL <200 normal Not Available [facility] [address] [place], [address], 07/03/2023 16:27:17 07/02/20 23 07/03/2023 LIPID PANEL , [place]AND [place]ON HDL cholesterol 39 mg/dL > or = 40 low Not Available [facility] [address] [place] [address], [address], 07/03/2023 16:27:17 07/02/20 23 07/03/2023 LIPID PANEL , STAND DAMON triglyceride s 399 mg/dL <150 high If a non-f astin g speci men was colle cted, consi abhilash repea t trigl yceri de testi ng on a fasti ng speci men if clini alta indic ated. Sridahr sam et al. J. of Clin. Lipid ol. 2015; 9:129 -169. Not Available [facility] [address] [place], [address], 07/03/2023 16:27:17 07/02/20 23 07/03/2023 LIPID PANEL , [place] LDL-choleste rol 86 mg/dL _(davon c) normal Refer ence range : <100 Jermain able range <100 mg/dL for prima ry preve ntion ; <70 mg/dL for patie nts with CHD or diabe tic patie nts with > or = 2 CHD risk facto rs. LDL-C is now calcu lated using the Sarah n-Hop kins calcu marielle n, which is a valid ated novel metho d provi ding thai r accur acy than the Fried radha equat ion in the estim ation of LDL-C . Sarah hanson SS et al. NIGHAT. 2013; 310(1 9): 2061- 2068 (http ://ed ucati on.Qu estDi [employer]ric[employer]. com/f aq/FA Q164) Not Available [facility] [address] [place], [address], 07/03/2023 16:27:17 07/02/20 23 07/03/2023 LIPID PANEL , STAND DAMON chol/HDLC ratio 4.6 (calc ) <5.0 normal Not Available [facility] [address] [place], [address], 07/03/2023 16:27:17 07/02/20 23 07/03/2023 LIPID PANEL , STAND DAMON non HDL cholesterol 139 mg/dL _(davon c) <130 high For patie nts with diabe fazal plus 1 major ASCVD risk facto r, treat ing to a non-H DL-C goal of <100 mg/dL (LDL- C of <70 mg/dL ) is consi stephan mcclellan optio n. Not Available [address] [address] [place], [address], 07/03/2023 16:27:17 07/02/20 23 07/03/2023 LIPID PANEL , STAND DAMON copy(ies) sent to: [facility] [address] [place] [address] Not Available [address], [address], 07/03/2023 16:27:17 07/02/20 23 07/03/2023 COMPR EHENS CHAY METAB OLIC PANEL glucose 165 mg/dL 65-99 high Fasti ng refer ence inter donna For someo ne witho ut known diabe fazal, a gluco se value >125 mg/dL indic ates that they may have diabe fazal and this shoul d be confi rmed with a follo w-up test. Not Available [address], [address], 07/03/2023 16:27:18 07/02/20 23 07/03/2023 COMPR EHENS CHAY METAB OLIC PANEL urea nitrogen (BUN) 16 mg/dL 7-25 normal Not Available [address], [address], 07/03/2023 16:27:18 07/02/20 23 07/03/2023 COMPR EHENS CHAY METAB OLIC PANEL creatinine 0.98 mg/dL 0.70-1 .30 normal Not Available [facility] [address] [place], [address], 07/03/2023 16:27:18 07/02/20 23 07/03/2023 COMPR EHENS CHAY METAB OLIC PANEL eGFR 92 mL/mi n/1.7 3m2 > or = 60 normal Not Available [address], [address], 07/03/2023 16:27:18 07/02/20 23 07/03/2023 COMPR EHENS CHAY METAB OLIC PANEL BUN/creatini ne ratio SEE NOTE: (calc ) 6-22 Not Repor corry: BUN and Creat inine are withi n refer ence range . Not Available [address], [address], 07/03/2023 16:27:18 07/02/20 23 07/03/2023 COMPR EHENS CHAY METAB OLIC PANEL sodium 141 mmol/ L 135-14 6 normal Not Available [address] [address] [place], [address], 07/03/2023 16:27:18 07/02/20 23 07/03/2023 COMPR EHENS CHAY METAB OLIC PANEL potassium 4.1 mmol/ L 3.5-5. 3 normal Not Available [address], [address], 07/03/2023 16:27:18 07/02/20 23 07/03/2023 COMPR EHENS CHAY METAB OLIC PANEL chloride 102 mmol/ L 98-110 normal Not Available [address] [address] [place], [address], 07/03/2023 16:27:18 07/02/20 23 07/03/2023 COMPR EHENS CHAY METAB OLIC PANEL carbon dioxide 26 mmol/ L 20-32 normal Not Available [address] [address] [place], [address], 07/03/2023 16:27:18 07/02/20 23 07/03/2023 COMPR EHENS CHAY METAB OLIC PANEL calcium 9.3 mg/dL 8.6-10 .3 normal Not Available [address], [address], 07/03/2023 16:27:18 07/02/20 23 07/03/2023 COMPR EHENS CHAY METAB OLIC PANEL protein, total 6.8 g/dL 6.1-8. 1 normal Not Available [address], [address], 07/03/2023 16:27:18 07/02/20 23 07/03/2023 COMPR EHENS CHAY METAB OLIC PANEL albumin 4.6 g/dL 3.6-5. 1 normal Not Available [address], [address], 07/03/2023 16:27:18 07/02/20 23 07/03/2023 COMPR EHENS CHAY METAB OLIC PANEL globulin 2.2 g/dL_ (calc ) 1.9-3. 7 normal Not Available [address], [address], 07/03/2023 16:27:18 07/02/20 23 07/03/2023 COMPR EHENS CHAY METAB OLIC PANEL albumin/glob ulin ratio 2.1 (calc ) 1.0-2. 5 normal Not Available [address], [address], 07/03/2023 16:27:18 07/02/20 23 07/03/2023 COMPR EHENS CHAY METAB OLIC PANEL bilirubin, total 0.6 mg/dL 0.2-1. 2 normal Not Available [address], [address], 07/03/2023 16:27:18 07/02/20 23 07/03/2023 COMPR EHENS CHAY METAB OLIC PANEL alkaline phosphatase 62 U/L 35-144 normal Not Available [address], [address], 07/03/2023 16:27:18 07/02/20 23 07/03/2023 COMPR EHENS CHAY METAB OLIC PANEL AST 13 U/L 10-35 normal Not Available [address], [address], 07/03/2023 16:27:18 07/02/20 23 07/03/2023 COMPR EHENS CHAY METAB OLIC PANEL ALT 20 U/L 9-46 normal Not Available [address], [address], 07/03/2023 16:27:18 07/02/20 23 07/03/2023 COMPR EHENS CHAY METAB OLIC PANEL copy(ies) sent to: [facility] [address] [place] [address] Not Available [address], [address], 07/03/2023 16:27:18 07/02/20 23 07/03/2023 ALBUM IN, RANDO M URINE W/CRE ATINI NE creatinine, random urine 76 mg/dL 20-320 normal Not Available [address], [address], 07/03/2023 16:27:19 07/02/20 23 07/03/2023 ALBUM IN, RANDO M URINE W/CRE ATINI NE albumin, urine 0.4 mg/dL see note: normal Refer ence Range : Refer ence Range Not estab lishe d Not Available [address], [address], 07/03/2023 16:27:19 07/02/20 23 07/03/2023 ALBUM IN, RANDO M URINE W/CRE ATINI NE albumin/crea tinine ratio, random urine 5 mcg/m g_cre at <30 normal The ADA defin es abnor malit ies in album in excre tion as follo ws: Album inuri a Categ ory Resul t (mcg/ mg creat inine ) Sherri l to Mildl y incre ased <30 Moder ately incre ased 30-29 9 Sever lynnette incre ased > OR = 300 The ADA recom mends that at least two of three speci mens colle cted withi n a 3-6 month perio d be abnor mal befor e consi kelly g a patie nt to be withi n a diagn ostic categ ory. Not Available [address], [address], 07/03/2023 16:27:19 07/02/20 23 07/03/2023 ALBUM IN, RANDO M URINE W/CRE ATINI NE copy(ies) sent to: [facility] [address] [place] [address] Not Available [address], [address], 07/03/2023 16:27:19 07/02/20 23 07/03/2023 TSH+F REE T4 TSH 1.78 mIU/L 0.40-4 .50 normal Not Available [address], [address], 07/03/2023 16:27:20 07/02/20 23 07/03/2023 TSH+F REE T4 T4, free 1.4 NG/dL 0.8-1. 8 normal Not Available [address], [address], 07/03/2023 16:27:20 07/02/20 23 07/03/2023 TSH+F REE T4 copy(ies) sent to: [facility] [address] [place] [address] Not Available [facility] [address] [address] [place], [address], 07/03/2023 16:27:20 07/02/2007/03/2023 HEMOG LOBIN A1C hemoglobin A1C 7.1 %_of_ total _HGB <5.7 high For someo ne witho ut known diabe fazal, a hemog lobin A1c value of 6.5% or great er indic ates that they may have diabe fazal and this shoul d be confi rmed with a follo w-up test. For someo ne with known diabe fazal, a value <7% indic ates that their diabe fazal is well contr olled and a value great er than or equal to 7% indic ates subop timal contr ol. A1c targe ts shoul d be indiv idual ized based on durat ion of diabe fazal, age, comor bid condi tions , and other consi derat ions. Curre ntly, no conse nsus exist s regar ding use of hemog lobin A1c for diagn osis of diabe fazal for child jarad. Not Available [address] [place], [address], 07/03/2023 16:27:21 07/02/20 23 07/03/2023 HEMOG LOBIN A1C copy(ies) sent to: [facility] [address] [place] [address] Not Available [address] [place], [address], 07/03/2023 16:27:21 Result Notes None recorded. Problems Name Problem SNOMED Code Status Onset Date Resolution Date Notes Provider Name and Address Organization Details Recorded Time Well controlled type 2 diabetes mellitus 671646700 Active 2022 Annamaria Lozano MD [address] [facility], [facility] [address], [place], [address] , [facility] [employer] 17:20:12 Mixed hyperlipidemia 731409886 Active 2022 Annamaria Lozano MD [address], [place], [address], [facility] 17:20:31 Problem Notes None recorded. Procedures Surgical History Date Name Laterality Status Provider Name and Address Organization Details Recorded Time 01/15/20 10 arthroplasty of left shoulder completed Not Available [facility] 01/15/2023 01:47:58 inguinal region repair completed Not Available [facility] 01/15/2023 01:47:58 Imaging Results None recorded. Procedure Notes None recorded. Medical Equipment None Reported. Allergies Allergen ID Allergen Name Allergen Category Reaction Reaction Severity Criticality Documentation Date Start Date Code Code System Note Provider Name and Address Organization Details Recorded Time 48509 trazodone medicatio n Not available Not available Not available 01/15/2023 69633 RxNorm Not Available [facility] 3 01:49:24 16199 morphine medicatio n Not available Not available Not available 01/15/2023 7052 RxNorm Not Available [facility] 3 01:49:24 96943 mirtazapi ne medicatio n Not available Not available Not available 01/15/2023 37373 RxNorm Not Available [facility] 3 01:49:24 92322 buspirone medicatio n Not available Not available Not available 01/15/2023 1827 RxNorm MEGHANN [place], [place] [employer] 3 18:34:15 Medications Name Sig Start Date Stop Date Status Note LastModified by Organization Details LastModified Time metformin 500 mg tablet TAKE 1 TABLET BY MOUTH TWICE DAILY WITH MEALS 2022 active Not Available Not Available Not Avai lable sildenafil 50 mg tablet TAKE 1 TABLET BY MOUTH NEEDED AN HOUR BEFORE SEX. DO NOT TAKE MORE THAN 1 TIME IN 48 HOURS. THIS IS NOT A DAILY MEDICNE 07/16 completed Not Available Not Available Not Available atorvastati n 10 mg tablet Take 1 tablet every day by oral route at bedtime for 90 days. 2022 active Not Available Not Available Not Avai lable sildenafil 100 mg tablet TAKE ONE TABLET BY MOUTH NEEDED AN HOUR BEFORE SEX DO NOT TAKE MORE THAN ONE TIME IN 48 HOURS THIS IS NOT A DAILY MEDICINE active Not Available Not Available No t Available alprazolam 2 mg tablet TAKE 1 TABLET BY MOUTH AT BEDTIME active Not Available Not Available No t Available rosuvastati n 10 mg tablet TAKE 1 TABLET BY MOUTH ONCE DAILY 07/16 completed Not Available Not Available Not Available testosteron e booster 02/10 completed Not Available Not Available Not Available cyclobenzap rine 10mg oral 1 tablet HS 02/10 completed Not Available Not Available Not Available aripiprazol e 2mg oral tablet x1 daily 07/16 completed Not Available Not Available Not Available aripiprazol e 2 mg tablet TAKE 1 TABLET BY MOUTH ONCE DAILY AT BEDTIME FOR 90 DAYS 07/16 completed Not Available Not Available Not Available alprazolam (bulk) 2mg oral tablet 1x HS 07/16 completed Not Available Not Available Not Available Vascepa 1 gram capsule Take 2 capsules twice a day by oral route before meals for 90 days. 2022 active Not Available Not Available Not Avai lable clonidine HCl 0.1mg oral tablet 1 tab HS prn 02/10 completed Not Available Not Available Not Available Jardiance 25 mg tablet Take 1 tablet every day by oral route in the morning for 90 days. 2022 active Not Available Not Available Not Avai lable Vitals Date Recorded Body weight Heart rate Body temperature Systolic And Diastolic Provider Name and Address Organization Details Last Updated DateTime 02/12/2023 61508.38 g 101 /min 97.9 [degF] 122/78 mm[Hg] MEGHANN Gonzalez [employer] [facility] [employer] 02/12/2023 16:57:52 Date Recorded Body weight Heart rate Systolic And Diastolic Provider Name and Address Organization Details Last Updated DateTime 07/16/2023 52703.19 g 96 /min 133/90 mm[Hg] Amy Fernandes [employer] [facility] [employer] 07/16/2023 10:44:26 Date Recorded Oxygen saturation Oxygen saturation in Arterial blood by Pulse oximetry Heart rate Body temperature Body weight Systolic And Diastolic Provider Name and Address Organization Details Last Updated DateTime 2 97 % 97 % 106 /min 98.1 [degF] 08812.6 5 g 140/86 mm[Hg] Not Available [employer] 01:48:16 Social History Question Answer Notes LastModified by Organizat ion Details LastModified Time Tobacco Smoking Status Never Smoker Susan Rebolledo minor, [place] - [facility] 02/12/2023 16:51:06 What Is Your Level Of Caffeine Consumption? Occasional Information not available 02/12/2023 What Is Your Relationship Status? [id number] Information not available 01/15/2023 Sex: Unknown Functional Status Question Answer Note LastModified by Organizat ion Details LastModified Time Do you or have you ever used any other forms of tobacco or nicotine? 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 Family History Relationship Description Onset Age of this Age Resolved Age Notes LastModified by Organization Details LastModified Time Mother Hypertensive disorder clouvier Not available 2022 18:36:02 Mother Osteoarthrit is akovach Not available 2022 10:35:28 Mother Anxiety disorder clouvier Not available 2022 18:36:07 Maternal Uncle Harmful pattern of use of alcohol akovach Not available 2022 10:35:28 Mother Depressive disorder [id number] Not available 01/15/2023 01:48:02 Medical History Condition Response DIABETES, TYPE Y HEART ARRHYTHMIA N INSOMNIA Y HIGH CHOLESTEROL / HYPERLIPIDEMIA Y Past Encounters Encounter ID Performer Location Encounter Start Date Encounter Closed Date Diagnosis/Indication Diagnosis SNOMED-CT Code Diagnosis ICD10 Code Diagnosis IMO Codes Diagnosis Note [id number] Obdulia Arana NP [facility] [address] [address] 12/23/2021 00:00:00 12/23/2021 19:41:25 [id number] Obdulia Arana NP [facility] [address] [address] 01/28/2022 00:00:00 01/28/2022 18:38:19 [id number] Obdulia Arana NP [facility] [address] [place] [address] [address] 04/28/2022 00:00:00 04/28/2022 14:43:17 [id number] Obdulia Arana NP [facility] [address] [address] 07/29/2022 00:00:00 07/29/2022 15:47:07 [id number] Obdulia Arana NP [facility] [address] [place] [address] [address] 10/28/2022 00:00:00 10/28/2022 14:15:22 [id number] Annamaria Lozano MD [facility] [address] [place] [address] 10/14/2022 00:00:00 10/14/2022 10:57:36 [id number] Obdulia Arana NP [facility] [address] [place] [address] [address] 02/04/2023 14:52:42 02/04/2023 19:07:48 [id number] Annamaria Lozano MD [facility] [address] [place] [id number] 02/12/2023 16:48:53 02/12/2023 17:43:49 Well controlled type 2 diabetes mellitus [id number] E11.9 a1c 6.4% down from 8.2%- patient has ideal control overall however 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 Recommende d patient increase carb intake for lunch and try to stick to nonstarchy carbs and protein for dinner. Continue on metformin for insulin sensitizat ion and jardiance as patient tolerating well. Discussed carb counting and how to read food labels. Recommende d patient to utilize the diabetesfo odhub.com from the ADA website to help with food preparatio n as this presents ideal carb content per meal so this will make carb counting much easier for patient. Recommende d he incorporat e natural insulin rn angiography s such as pears, apples, cinnamon, dorothy and sweet potatoes to help mobilize his endogenous insulin. Recommende d up to 150 minutes of moderate level activity/e xercise weekly. Mixed hyperlipidemia [id number] E78.2 TG levels are improved but still elevated- continue vascepa and continue statin therapy. Recommende d considerat ion of krill oil and if no improvemen t at return visit will discuss potential addition of fibric acid. Spent up to 25 minutes preparing to see the patient (eg, review of tests), obtaining and/or reviewing separately obtained history, performing a medically appropriat e examinatio n and evaluation , counseling and educating the patient, ordering medication s, tests, along with documentin g clinical informatio n in the electronic health record, independen tly interpreti ng results and communicat ing results to the patient. RTC in 5-6 months. Patient was provided a handwritte n lab order which contains our fax number. If he chooses to go outside of the [facility] system to obtain labwork he was advised to provide our fax number and my informatio n to the lab he will be obtaining labwork from in order to have his labs properly forwarded over for me to review so there is no loss of follow up due to use of outside network. He was also advised to contact our clinic informing us that he has completed his labwork so we are aware we will need to reach out to the appropriat e laboratory to request his results be forwarded to us so I might have the ability to review and make further medical decision making in his case. He voiced understand ing. [id number] Annamaria Lozano MD [facility] [address] [place] [address] 07/16/2023 10:33:41 07/16/2023 11:34:45 Well controlled type 2 diabetes mellitus [id number] E11.9 a1c of 7.1% up from 6.4%- continue on jardiance and metformin for insulin sensitizat ion. He was encouraged to test sugars daily to have a better idea of his overall control and to gauge his intake and level of activity to help regulate better control. Discussed carb counting and how to read food labels. Recommende d patient to utilize the diabetesfo [employer]at[employer]earlyweds from the ADA website to help with food preparatio n as this presents ideal carb content per meal so this will make carb counting much easier for patient. Recommende d he incorporat e natural insulin rn angiography s such as pears, apples, cinnamon, dorothy and sweet potatoes to help mobilize his endogenous insulin. Recommende d up to 150 minutes of moderate level activity/e xercise weekly. Mixed hyperlipidemia [phone] [id number] E78.2 TG levels much better down to 399 mg/dL down from 817 mg/dL- continue vascepa and continue statin therapy. Spent up to 25 minutes preparing to see the patient (eg, review of tests), obtaining and/or reviewing separately obtained history, performing a medically appropriat e examinatio n and evaluation , counseling and educating the patient, ordering medication s, tests, along with documentin g clinical informatio n in the electronic health record, independen tly interpreti ng results and communicat ing results to the patient. Patient can be followed by PCP - she/he is aware of my resignatio n and last day of August 28. If needed his/her PCP can refer patient to another endocrinol ogist in the area. All questions /concerns answered and refills necessary at visit today. Health Concerns Section Related Observation LastModified by Organization Detai ls LastModified Time None Recorded Concern Status LastModified by Organization Details LastModified Time None Recorded Advance Directives Directive None Recorded Payers Insurance Date Sequence Insurance Name Policy Number Policy Graff Covered Member ID Graff Member ID Guarantor Name 07/16/[address] [place] [address] ([facility]) [id number] Ashu Arndt [id number] Ashu Arndt Notes Date Note Type Note Provider Name and Address Organization Details Recorded Time 02/12/2023 text/html ROS as noted in the HPI 52 yo male comes in for follow up in management of now better controlled type 2 DM (A1C of 6.4% down from 8.2%), mixed dyslipidemia. last seen / initial visit in Sep at that time we added jardiance 10 mg daily. Due to high TG we held GLP1 agonist therapies. He is now taking the jardiance 25 mg daily and he is not having any urinary pain or discomfort when taking this. He is tolerating the metformin well. we added vascepa and patient tolerating well- TG dropped by 300 mg/dL however still elevated. He is now following a low carb diet and somedays he doesn't get carbs until supper. He is cutting out more starch. He is drinking more water regularly. He is using Luc[facility]/diabetes plan. He is wanting to use more lifestyle changes labs from 01/29/23:a1c 6.4%190/517 (was 841)/36glucose 151 mg/dLCr normalLFT normalmicroalbumin 11 ug/mgTSH of 1.71 uIU/mlFT4 of 1.3 ng/dL Annamaria Lozano MD [address], [place], [place], [address], [facility] 02/12/2023 20:06:03 07/16/2023 text/html ROS as noted in the HPI 53 yo male comes in for follow up in management of overall well controlled type 2 DM (A1C of 7.1% up from 6.4%), mixed dyslipidemia. last seen in January at that time we had patient continue on metformin for insulin sensitization and jardiance as patient was tolerating well. we continued statin and vascepa. He feels he weighs around 195 to 197 pounds. He feels he is having significant fatigue He doesn't drink sodas and avoids carbs. He feels his energy is worse/ low libido and has feel more exhaustion. He is used to having an overabundance of energy. He feels his diet is overall clean- he will have a ham sandwich every other day. He has a glucose meter and not testing regularly-encouraged to do so. labs from 07/08:a1c 7.1%TSH of 1.78 uIU/mlFT4 of 1.4 ng/dLmicroalbumin 5 ug/mgglucose 165 mg/dLCr normalLFT /399/39/86 (TG dropped from 817 down to 581 and now 399 mg/dL) Annamaria Lozano MD [address], [place], [address], [facility] 07/16/2023 12:13:47
--- OUTSIDE RECORDS SUMMARY | 2025-09-11 21:35 | XMS_ITS | Clinical Summary ---
Author Organization [facility] [address] [place] [phone] Care Team Providers Care Technical Staff Assistant Name Role Phone Amol Ewing MD Primary Care Provider [phone] Allergies Active Allergy Reactions Criticality Noted Date Comments Morphine-Naltrexone Nausea & Vomiting Low 7 Medications mirtazapine (REMERON BARRY-TAB) 15 mg disintegrating tablet Take 15 mg by mouth nightly. Active ALPRAZolam (XANAX) 2 mg tablet Take 2 mg by mouth nightly as needed for anxiety. Active ARIPiprazole (ABILIFY) 2 mg tablet TAKE 1 TABLET BY MOUTH ONCE DAILY AT BEDTIME FOR 90 DAYS 2 Active atorvastatin (LIPITOR) 10 mg tablet Take 10 mg by mouth daily 2 Active sildenafiL (VIAGRA) 50 mg tablet TAKE 1 TABLET BY MOUTH NEEDED AN HOUR BEFORE SEX. DO NOT TAKE MORE THAN 1 TIME IN 48 HOURS. THIS IS NOT A DAILY MEDICNE 2 Active metFORMIN (GLUCOPHAGE) 500 mg tablet Take 1 tablet (500 mg total) by mouth 2 (two) times a day with meals 60 tablet 11 2 Active icosapent ethyL (Vascepa) 1 gram capsule Take 2 capsules (2 g total) by mouth 2 (two) times a day 120 capsule 11 2 Active Active Problems Problem Noted Date Diagnosed Date Type 2 diabetes mellitus without complication Mixed hyperlipidemia 03/11/2022 Surgical History Surgery Date Site/Laterality Comments SHOULDER SURGERY 11/16/2009 - 11/15/2010 Left SURGERY FOR CONGENITAL HERNIA 11/16/2009 - 010 Social History Tobacco Use Types Packs/Day Years Used Date Smoking Tobacco: Never Smokeless Tobacco: Never Personal Safety Answer Date Recorded Getting School Help Needed Not on file 01/09 Sex and Gender Information Value Date Recorded Sex Assigned at Not on file 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 Gender Identity Not on file Sexual Orientation Not on file Obstetrics History Last Filed Vital Signs Vital Sign Reading Time Taken Comments Blood Pressure 153/91 03/11/2022 9:50 AM CDT Pulse 101 03/11/2022 9:50 AM CDT Temperature 36.9 C (98.5 F) 03/11/2022 9:50 AM CDT Respiratory Rate - - Oxygen Saturation - - Inhaled Oxygen Concentration - - Weight 98.8 kg (217 lb 12.8 oz) 03/11/2022 9:50 AM CDT Height 175.3 cm (5' 9) 03/11/2022 9:50 AM CDT Body Mass Index 32.16 03/11/2022 9:50 AM CDT Plan of Treatment Not on file Insurance [facility] PPO Care Teams Technical Staff Assistant Relationship Specialty Start Date End Date Amol Ewing MD PCP - General Internal Medicine 09/04/17
--- NOTE | 2025-09-11 21:45 | PC.NURSE ---
Pt in Ct at this time.
[2025-09-11 21:46] LABS: Hematocrit 43.8 % (40.0-54.0); Hemoglobin 14.9 g/dL (14.0-18.0); Immature Granulocyte Percent A 0.4 % (0.0-0.0); Lymphocytes Absolute Auto 1.53 K/mm3 (1.10-4.50); Mean Corpuscular HGB Conc 34.0 g/dL (32-36); Mean Corpuscular Hemoglobin 29.7 pg (27.0-31.0); Mean Corpuscular Volume 87.3 fL (78.0-102.0); Nucleated Red Blood Cells Absolute Auto 0.00 K/mm3 (0.00-0.00); Nucleated Red Blood Cells Perc 0.0 % (0-0.0); Platelet Count Result 222 K/mm3 (150-420); Red Blood Count 5.02 M/mm3 (4.70-6.10); White Blood Count 8.4 K/mm3 (4.8-10.8)
[2025-09-11 22:02] LABS: Alanine Aminotransferase 33 U/L (6-50); Albumin Level 4.8 g/dL (3.5-5.1); Alkaline Phosphatase 76 U/L (38-126); Anion Gap 12 mmol/L (4-12); Aspartate Amino Transferase 36 U/L (17-59); Bilirubin,Total 0.9 mg/dL (0.2-1.3); Blood Urea Nitrogen 17 mg/dL (9-20); Calcium 9.8 mg/dL (8.4-10.2); Carbon Dioxide 30 mmol/L (22-30); Chloride 102 mmol/L (98-107); Estimated CRCL calculation 54 ml/min; Estimated Glomerular Filt Rate 54; Glucose 135 mg/dL (65-110); Osmolality Calculated 301 mOsm/kg (285-295); Potassium 4.5 mmol/L (3.4-5.0); Sodium 144 mmol/L (137-145); Total Protein 8.6 g/dL (6.3-8.2)
[2025-09-11 22:05] LABS: INR 0.9; Partial Thromboplastin Time 29.7 Sec (23.9-30.70); Prothrombin Time 10.4 Seconds (9.50-12.1)
[2025-09-11 22:14] LABS: Troponin I < 0.012 ng/mL (0.000-0.034)
--- NOTE | 2025-09-11 23:00 | PC.NURSE ---
Pt reports still has floaters in vision but denies flashes at this time.
--- NOTE | 2025-09-11 23:58 | PC.NURSE ---
Facesheet faxed to [facility] transfer center as requested with fax confirmation received.
[2025-09-12 00:01] VITALS: BP 137/93; PULSE 84; RESP 17; TEMP 36.4; O2SAT 96
[2025-09-12 00:47] VITALS: BP 164/100; PULSE 94; RESP 18; TEMP 36.6; O2SAT 97
== END 2025-09-12 00:48 | disposition home or self-care (01) ==
PROVIDERS: Emergency Provider Emergency Medicine; PCP Internal Medicine
DX: H43.391 Other vitreous opacities, right eye (principal); Z79.84 Long term (current) use of oral hypoglycemic drugs; Z79.899 Other long term (current) drug therapy
CPT/HCPCS: 36415; 70450; 80053; 82948; 84484; 85025; 85610; 85730; 93005; 99284